=== PATIENT | male | born 1975 | race Caucasian/White ===

== ENCOUNTER 2018-05-31 10:28 | Day surgery (SDC) | payer BC ==
[~2018-05-31] VITALS: Ht 175.3 cm; Wt 177.3 kg
[~2018-05-31 10:28] MED LIST: ABILIFY5 MG PO; AMBIEN10 MG PO; COLACE 100100 MG/CAP PO; HCTZ 25MG25 MG PO; PREDNISONE 5MG5 MG PO; PRILOSEC 20MG20 MG PO; ZANTAC 150150 MG PO; ZOVIRAX200 MG PO
[2018-05-31] MEDS ORDERED: PROTONIX20 MG PO (10:53)
[2018-05-31 10:54] VITALS: BP 142/86; PULSE 63; TEMP 98.2
[2018-05-31] MEDS ORDERED: NORCO 325 MG-51 TAB PO (10:54)
[2018-05-31] MEDS ORDERED: NEXIUM 24HR20 M1 PO (10:54)
[2018-05-31 12:50] VITALS: BP 142/86; PULSE 71; TEMP 97.3
[2018-05-31 13:05] VITALS: BP 129/84; PULSE 96; TEMP 98
[2018-05-31 13:20] VITALS: BP 130/80; PULSE 85
[2018-05-31 13:35] VITALS: BP 126/84; PULSE 72
--- NOTE | 2018-05-31 13:36 | NUR ---
PATIENT RETURNS FROM SURGERY VIA CART. AMBULATES TO CHAIR. VS STARTED. LUNGS CLEAR BILATERALLY. RESPIRATIONS EVEN AND UNLABORED. DRANK WATER AND ATE PUDDING. AT BEDSIDE. CALL LIGHT WITHIN REACH. WILL CONTINUE TO MONITOR.
--- NOTE | 2018-05-31 13:39 | NUR ---
CALL LIGHT SHERITA JOHNSTON. DENIES PAIN OR NAUSEA.
--- NOTE | 2018-05-31 13:40 | NUR ---
DENIES PAIN AND NAUSEA. CALL LIGHT IN REACH. vs CONTINUE.
--- NOTE | 2018-05-31 13:41 | NUR ---
DISCHARGE INSTRUCTIONS GIVEN TO PATIENT AND . VERBALIZED UNDERSTANDING. ALL PERSONAL BELONGINGS RETURNED. AMBULATED WITH AND STUDENT NURSE TO ELEVATOR WITH STEADY GAIT.
== END 2018-05-31 13:45 | disposition home or self-care (01) ==
LOC: SDCO 10:28
DX: Z12.11 Encounter for screening for malignant neoplasm of colon (principal); K21.9 Gastro-esophageal reflux disease without esophagitis; K44.9 Diaphragmatic hernia without obstruction or gangrene; K31.89 Other diseases of stomach and duodenum; F32.9 Major depressive disorder, single episode, unspecified; K92.1 Melena; K59.00 Constipation, unspecified; I10 Essential (primary) hypertension; E11.9 Type 2 diabetes mellitus without complications; G47.33 Obstructive sleep apnea (adult) (pediatric); R19.7 Diarrhea, unspecified; E66.01 Morbid (severe) obesity due to excess calories; Z68.43 Body mass index [BMI] 50.0-59.9, adult; Z86.010 Personal history of colon polyps; Z83.71 Family history of colonic polyps; Z80.0 Family history of malignant neoplasm of digestive organs; Z90.49 Acquired absence of other specified parts of digestive tract
CPT/HCPCS: J2704; J3010; J7120